=== PATIENT | female | born 1990 | race Hispanic/Latino ===

== ENCOUNTER 2022-08-13 03:07 | Emergency (ER) | payer OTHER ==
[~2022-08-13] VITALS: Ht 160 cm; Wt 81.6 kg
[2022-08-13] MEDS ORDERED: ALBUTEROL 0.083% 2.5 MG/3 ML INH IH ONE (04:00)
[2022-08-13] MEDS ORDERED: IPRATROPIUM 0.5 MG/2.5 ML INH IH ONE (04:00)
[2022-08-13 04:16] LABS: BASOPHILS % (AUTO) 0.7 % (0.0-5.0); HEMATOCRIT 41.9 % (36-48); LYMPHOCYTES % (AUTO) 28.4 % (21.0-51.0); MEAN CORPUSCULAR HEMOGLOBIN 31.9 pg (27.0-33.0); MEAN CORPUSCULAR HGB CONC 34.4 g/dL (32.0-36.0); MEAN CORPUSCULAR VOLUME 92.7 fL (79-99); MONOCYTES % (AUTO) 5.5 % (3.0-13.0); PLATELET COUNT (AUTO) 409 K/uL (130-400); RED BLOOD CELL COUNT(AUTO) 4.52 MIL/uL (4.00-5.50); RED CELL DISTRIBUTION WIDTH 11.6 % (11.0-15.5); WHITE BLOOD COUNT (AUTO) 10.3 K/uL (4.8-10.8)
[2022-08-13 04:52] LABS: ALBUMIN 3.6 g/dL (3.5-5.0); CREATININE 0.8 mg/dL (0.5-1.5); POTASSIUM 3.1 mmol/L (3.5-5.1); T4 (THYROXINE) 7.7 ug/dL (4.7-13.3); TOTAL PROTEIN, SERUM 7.7 g/dL (6.0-8.3)
[2022-08-13] MEDS ORDERED: KCL 20 MEQ ERTAB PO ONE (05:00)
[2022-08-13] MEDS ORDERED: ALBU90AE2 IH (05:00)
[2022-08-13 05:13] VITALS: BP 115/58
[2022-08-13 05:21] LABS: ERYTHROCYTE SEDIMENTATION RATE 16 MM/HR (0-20)
== END 2022-08-13 05:41 | disposition home or self-care (01) ==
LOC: EDH 03:07
DX: E04.9 Nontoxic goiter, unspecified (principal); E87.6 Hypokalemia; J45.909 Unspecified asthma, uncomplicated; Z91.040 Latex allergy status; Z90.89 Acquired absence of other organs; Z98.890 Other specified postprocedural states
CPT/HCPCS: 36415; 80053; 84436; 84439; 84443; 84479; 84481; 85025; 85651; 94640

== ENCOUNTER 2023-08-06 09:00 | Emergency (ER) | payer BC, OTHER ==
[~2023-08-06] VITALS: Ht 162.6 cm; Wt 74.8 kg
[~2023-08-06 09:00] MED LIST: ALBU90AE2 IH
[2023-08-06 09:35] LABS: BASOPHILS # (AUTO) 0.08 K/uL (0.00-0.20); BASOPHILS % (AUTO) 0.9 % (0.0-5.0); EOSINOPHILS # (AUTO) 0.16 K/uL (0.00-0.70); EOSINOPHILS % (AUTO) 1.8 % (0.0-8.0); HEMATOCRIT 38.6 % (36-48); IMMATURE GRANULOCYTE ABSOLUTE 0.07 K/uL (0-1); LYMPHOCYTES # (AUTO) 1.5 K/uL (1.0-4.8); LYMPHOCYTES % (AUTO) 16.8 % (21.0-51.0); MEAN CORPUSCULAR HGB CONC 34.5 g/dL (32.0-36.0); MONOCYTES # (AUTO) 0.7 K/uL (0.1-1.0); MONOCYTES % (AUTO) 7.1 % (3.0-13.0); NEUTROPHILS # (AUTO) 6.6 K/uL (1.8-7.7); NEUTROPHILS % (AUTO) 72.6 % (40.0-77.0); PLATELET COUNT (AUTO) 408 K/uL (130-400); RED BLOOD CELL COUNT(AUTO) 4.15 MIL/uL (4.00-5.50); RED CELL DISTRIBUTION WIDTH 11.9 % (11.0-15.5); WHITE BLOOD COUNT (AUTO) 9.1 K/uL (4.8-10.8)
[2023-08-06 09:44] LABS: CREATININE 0.7 mg/dL (0.5-1.5); POTASSIUM 3.5 mmol/L (3.5-5.1)
[2023-08-06 09:59] LABS: APPEARANCE,URINE CLEAR (CLEAR); BILIRUBIN,URINE NEGATIVE (NEGATIVE); COLOR,URINE COLORLESS (YELLOW); GLUCOSE, URINE (UA) NEGATIVE (NEGATIVE); KETONES,URINE NEGATIVE (NEGATIVE); LEUKOCYTE ESTERASE ,URINE NEGATIVE Leu/uL (NEGATIVE); NITRATE,URINE NEGATIVE (NEGATIVE); OCCULT BLOOD,URINE NEGATIVE (NEGATIVE); PROTEIN,URINE NEGATIVE (NEGATIVE); UROBILINOGEN,URINE 0.2 mg/dL (0.2-1.0)
[2023-08-06 10:00] LABS: ADD UA MICROSCOPIC NO; HCG,QUALITATIVE URINE NEGATIVE (NEGATIVE)
[2023-08-06] MEDS: 0.9%NACL 1000ML 1,000 ML IV ONE (11:12)
[2023-08-06] MEDS: ONDANSETRON 4MG INJ IVP ONE (11:13)
[2023-08-06] MEDS: MORPHINE 4 MG SYG IVP ONE (11:13)
[2023-08-06] MEDS ORDERED: ONDA4TAB10 PO (11:55)
[2023-08-06] MEDS ORDERED: FAMO20TA8 PO (11:55)
[2023-08-06 12:10] VITALS: BP 132/78; PULSE 78; RESP 18; O2SAT 98
== END 2023-08-06 12:13 | disposition home or self-care (01) ==
LOC: EDH 09:00
DX: K29.70 Gastritis, unspecified, without bleeding (principal); R11.2 Nausea with vomiting, unspecified
CPT/HCPCS: 99284; 74176; 80048; 83690; 85025; 81003; 81025; 36415; J7030; J2405; J2270

== ENCOUNTER 2024-06-06 14:06 | Emergency (ER) | payer BC ==
[~2024-06-06] VITALS: Ht 160 cm; Wt 77.1 kg
[~2024-06-06 14:06] MED LIST changes: -ALBU90AE2 IH; +ALBU90AE3 IH; +FAMO20TA8 PO; +ONDA-243 PO
[2024-06-06 14:41] LABS: BASOPHILS # (AUTO) 0.08 K/uL (0.00-0.20); BASOPHILS % (AUTO) 0.7 % (0.0-5.0); EOSINOPHILS # (AUTO) 0.35 K/uL (0.00-0.70); HEMATOCRIT 40.5 % (36-48); LYMPHOCYTES # (AUTO) 1.8 K/uL (1.0-4.8); LYMPHOCYTES % (AUTO) 15.5 % (21.0-51.0); MEAN CORPUSCULAR HEMOGLOBIN 32.3 pg (27.0-33.0); MEAN CORPUSCULAR HGB CONC 34.3 g/dL (32.0-36.0); MEAN CORPUSCULAR VOLUME 94.2 fL (79-99); MONOCYTES # (AUTO) 0.7 K/uL (0.1-1.0); MONOCYTES % (AUTO) 6.1 % (3.0-13.0); NEUTROPHILS # (AUTO) 8.7 K/uL (1.8-7.7); NEUTROPHILS % (AUTO) 73.8 % (40.0-77.0); PLATELET COUNT (AUTO) 377 K/uL (130-400); RED CELL DISTRIBUTION WIDTH 12.3 % (11.0-15.5); WHITE BLOOD COUNT (AUTO) 11.7 K/uL (4.8-10.8)
[2024-06-06 14:55] LABS: CREATININE 0.7 mg/dL (0.5-1.0); POTASSIUM 3.6 mmol/L (3.5-5.1)
[2024-06-06 15:25] LABS: ALBUMIN 3.4 g/dL (3.5-5.0); BILIRUBIN,TOTAL 0.7 mg/dL (0.2-1.0); TOTAL PROTEIN, SERUM 7.3 g/dL (6.0-8.3)
--- NOTE | 2024-06-06 15:29 | HMCIMG ---
US OB <14 WEEKS REASON: ABD PAIN COMPARISON: None TECHNIQUE: Routine sonogram was performed. FINDINGS: There is an intrauterine gestational sac. There is a pole corresponding with a 7 week 1 day IUP, heart rate 160 BPM. Uterus appears otherwise unremarkable. The right ovary appears normal. Left ovary was not separately identified. There are no adnexal masses. There is no free fluid in the cul-de-sac. IMPRESSION: 1. Single intrauterine gestational sac, there is a pole corresponding with a 7 week 1 day IUP, heart rate 160 BPM.
[2024-06-06 16:15] LABS: APPEARANCE,URINE CLEAR (CLEAR); BILIRUBIN,URINE NEGATIVE (NEGATIVE); COLOR,URINE LIGHT-YELLOW (YELLOW); GLUCOSE, URINE (UA) NEGATIVE (NEGATIVE); KETONES,URINE NEGATIVE (NEGATIVE); LEUKOCYTE ESTERASE ,URINE NEGATIVE Leu/uL (NEGATIVE); NITRATE,URINE NEGATIVE (NEGATIVE); OCCULT BLOOD,URINE NEGATIVE (NEGATIVE); PH,URINE 6.5 (5.0-8.0); PROTEIN,URINE NEGATIVE (NEGATIVE); UROBILINOGEN,URINE 0.2 mg/dL (0.2-1.0)
[2024-06-06 16:16] LABS: ADD UA MICROSCOPIC YES
[2024-06-06 16:20] LABS: MUCUS,URINE RARE LPF (None Seen); RBC,URINE 0-1 /HPF (0-1); SQUAMOUS EPITHELIAL CELL,UR FEW /HPF (0-2)
[2024-06-06 17:16] VITALS: BP 126/75; PULSE 78; RESP 16; TEMP 99.4; O2SAT 98
--- NOTE | 2024-06-06 17:23 | ERN ---
General Chief Complaint: Vaginal Bleeding Stated Complaint: VAGINAL BLEEDING, 8 WEEKS Time Seen by MD: 14:16 Time Seen by Midlevel: 14:16 Source: patient History of Present Illness Allergies: Coded Allergies: lidocaine (Unverified Allergy, Unknown, 08/13/22) Home Meds Active Scripts Ondansetron (Ondansetron Odt) 4 Mg Tab.rapdis, 4 MG PO Q6HPRN PRN for NAUSEA/VOMITING, #3 TAB Prov:JOSEFINA RASMUSSEN V [employer]ERWATER HUNTER 08/06/23 Famotidine (Famotidine) 20 Mg Tablet, 20 MG PO DAILY, #7 TAB Prov:JOSEFINA RASMUSSEN V UNDERWATER HUNTER 08/06/23 Albuterol Sulfate (Proair Digihaler) 90 Mcg Aer.pw.bas, 2 PUFF IH QID, #1 UNIT Prov:MAURIZIO WILLAMS MD 08/13/22 Past Medical History Past Medical History: Gallstones Medical History Other: HX OF GALLSTONES Past Surgical History: Tonsillectomy Family History Family History: Negative Social History Social History: Negative, Lives with family Female( History) LMP: Apr 21, 2024 : 3 Para: 0 Aborts: 2 Results Laboratory and Microbiology Lab and Micro Result Laboratory Tests Test 06/06/24 14:27 06/06/24 16:00 White Blood Count 11.7 K/uL (4.8-10.8) H Red Blood Count 4.30 MIL/uL (4.00-5.50) Hemoglobin 13.9 g/dL (12.0-16.0) Hematocrit 40.5 % (36-48) Mean Corpuscular Volume 94.2 fL (79-99) Mean Corpuscular Hemoglobin 32.3 pg (27.0-33.0) Mean Corpuscular Hemoglobin Concent 34.3 g/dL (32.0-36.0) Red Cell Distribution Width 12.3 % (11.0-15.5) Platelet Count 377 K/uL (130-400) Mean Platelet Volume 10.9 fL (7.5-10.5) H Immature Granulocyte % (Auto) 0.9 % (0-1) Neutrophils (%) (Auto) 73.8 % (40.0-77.0) Lymphocytes (%) (Auto) 15.5 % (21.0-51.0) L Monocytes (%) (Auto) 6.1 % (3.0-13.0) Eosinophils (%) (Auto) 3.0 % (0.0-8.0) Basophils (%) (Auto) 0.7 % (0.0-5.0) Neutrophils # (Auto) 8.7 K/uL (1.8-7.7) H Lymphocytes # (Auto) 1.8 K/uL (1.0-4.8) Monocytes # (Auto) 0.7 K/uL (0.1-1.0) Eosinophils # (Auto) 0.35 K/uL (0.00-0.70) Basophils # (Auto) 0.08 K/uL (0.00-0.20) Absolute Immature Granulocyte (auto 0.10 K/uL (0-1) Nucleated Red Blood Cells 0.0 % (0.0-0.19) Sodium Level 141 mmol/L (136-145) Potassium Level 3.6 mmol/L (3.5-5.1) Chloride Level 106 mmol/L (101-111) Carbon Dioxide Level 26 mmol/L (21-32) Blood Urea Nitrogen 8 mg/dL (7-18) Creatinine 0.7 mg/dL (0.5-1.0) Glomerular Filtration Rate Calc 116 mL/min (>90) Random Glucose 105 mg/dL (70-105) Total Calcium 8.7 mg/dL (8.5-10.1) Total Bilirubin 0.7 mg/dL (0.2-1.0) Aspartate Amino Transf (AST/SGOT) 12 U/L (10-37) Alanine Aminotransferase (ALT/SGPT) 25 U/L (12-78) Alkaline Phosphatase 61 U/L (50-136) Total Protein 7.3 g/dL (6.0-8.3) Albumin 3.4 g/dL (3.5-5.0) L Human Chorionic Gonadotropin, Quant 39022 mIU/mL (0-5) H Urine Color LIGHT-YELLOW (YELLOW) Urine Appearance CLEAR (CLEAR) Urine pH 6.5 (5.0-8.0) Urine Specific [place] 1.016 (1.001-1.031) Urine Protein NEGATIVE mg/dL (NEGATIVE) Urine Glucose (UA) NEGATIVE mg/dL (NEGATIVE) Urine Ketones NEGATIVE mg/dL (NEGATIVE) Urine Occult Blood NEGATIVE (NEGATIVE) Urine Nitrate NEGATIVE (NEGATIVE) Urine Bilirubin NEGATIVE mg/dL (NEGATIVE) Urine Urobilinogen 0.2 mg/dL (0.2-1.0) Urine Leukocyte Esterase NEGATIVE Anya/uL Urine RBC 0-1 /HPF (0-1) Urine WBC None /HPF (0-1) Urine Squamous Epithelial Cells FEW /HPF (0-2) Urine Bacteria None /HPF (None Seen) ED Course Orders Procedure Category Date Status Time Cbc With Differential LAB 06/06/24 Complete 14:12 Comprehensive LAB 06/06/24 Complete Metabolic Panel 14:12 Urinalysis Profile LAB 06/06/24 Complete 14:12 Hcg,Quantitative LAB 06/06/24 Complete 14:12 Abo/Rh BBK 06/06/24 Complete 14:12 Us Ob <14 Weeks US 06/06/24 Resulted 14:12 Vital Signs Date Time Temp Pulse Resp B/P (MAP) Pulse Ox O2 Delivery O2 Flow Rate FiO2 06/06/24 17:16 99.3 78 16 126/75 98 Room Air* 0 21 06/06/24 14:07 99.3 78 16 126/75 98 Room Air 0 DX & DISP Disposition: Discharge Departure Impression: Primary Impression: Vaginal bleeding in patient after first trimester Additional Impression: Vaginal bleeding in Condition: Stable Additional Instructions: Discharge home. Rest. Follow up with primary care DrKeshia in 24 hours. Return to the ER for any acute changes or worsening symptoms. If any medications were prescribed take as directed. Okay to continue home medications unless otherwise discussed during your visit in the emergency room today. Patient was also advised to follow-up with primary care physician in 1 to 2 days for continued monitoring. Referrals: [facility] (PCP) I participated in the following activities of this patient's care: For this patient encounter, I reviewed the PA or [employer] documentation, treatment plan, and medical decision making. I did not have [id number] time with this patient. I will sign as the reviewing DrKeshia And agree with the treatment plan and disposition. GUERRERO JACOBO Jun 06, 2024 17:23
== END 2024-06-06 18:07 | disposition home or self-care (01) ==
LOC: EDH 14:06
DX: O20.9 Hemorrhage in early pregnancy, unspecified (principal); O26.891 Other specified pregnancy related conditions, first trimester; R10.2 Pelvic and perineal pain; Z3A.08 8 weeks gestation of pregnancy; Z90.89 Acquired absence of other organs
CPT/HCPCS: 36415; 76801; 80053; 81001; 84702; 85025; 86900; 86901; 99284